=== PATIENT | female | born 1960 | race Caucasian/White ===

== ENCOUNTER 2020-08-17 13:49 | Outpatient (RCR) | payer OTHER | END 2020-11-09 | disposition home or self-care (01) | LOC: ONC 13:49 | PROVIDERS: ATTEND Radiology Radiation Oncology | DX: C21.1 Malignant neoplasm of anal canal (principal); I10 Essential (primary) hypertension; Z94.84 Stem cells transplant status; Z80.0 Family history of malignant neoplasm of digestive organs; Z80.3 Family history of malignant neoplasm of breast; Z90.710 Acquired absence of both cervix and uterus; Z98.1 Arthrodesis status | CPT/HCPCS: 77300; 77301; 77334; 77338; 99204 ==